=== PATIENT | male | born 1970 | race Caucasian/White ===

== ENCOUNTER 2016-11-21 10:30 | Emergency (ER) | payer BC, OTHER ==
[~2016-11-21] VITALS: Ht 175.3 cm; Wt 83.9 kg
[2016-11-21 10:41] VITALS: BP 163/105
[2016-11-21] MEDS ORDERED: NAPROXEN 500 MG TABLET PO STA (11:13)
[2016-11-21] MEDS ORDERED: HYDROCODONE/APAP 5/325MG TABLET. PO ONE (11:15)
[2016-11-21] MEDS ORDERED: CYCLOBENZAPRINE 10 MG TABLET. PO ONE (11:15)
--- NOTE | 2016-11-21 11:55 | RAD ---
Lumbar spine, 3 views, 11/21/2016: History: Back pain after twisting injury The lumbar vertebral heights are well-maintained. The intervertebral disc spaces are well preserved. No fracture or dislocation is identified. The paraspinous soft tissues are unremarkable. IMPRESSION: No acute lumbar spine abnormality is detected.
[2016-11-21] MEDS ORDERED: HYDR-971 PO (12:35)
[2016-11-21] MEDS ORDERED: CYCL10TA2 PO (12:35)
[2016-11-21] MEDS ORDERED: NAPR500T8 PO (12:35)
[2016-11-21] MEDS ORDERED: METH4TAB2 PO (12:35)
--- NOTE | 2016-11-21 12:35 | PHYS DOC ---
Past Medical History Past Medical History: No Pertinent History Additional Past Medical Histor: Devan's Dx Past Surgical History: Other Additional Past Surgical Histo: eye Alcohol Use: None Drug Use: None Adult General Chief Complaint Chief Complaint: LOWER BACK PAIN OR INJURY HPI HPI Patient is a 46 year old male who presents with mild bilateral low back pain worse on the right side of the back that began a week ago when he fell down 3 steps on his deck. Patient states today he twisted wrong and his pain worsened. Patient denies any loss of consciousness. Denies any loss of bowel or bladder function. Denies any pain radiating to bilateral lower extremities. Review of Systems Review of Systems Constitutional: Denies fever or chills [] Musculoskeletal: Bilateral low back pain worse on the right side Integument: Denies rash or skin lesions [] Neurologic: Denies headache, focal weakness or sensory changes [] Endocrine: Denies polyuria or polydipsia [] Current Medications Current Medications Current Medications Medications (Trade) Dose Ordered Sig/Zen Start Time Stop Time Status Last Admin Dose Admin Acetaminophen/ Hydrocodone Bitart (Lortab 5/325) 2 tab 1X ONCE 11/21/16 11:15 11/21/16 11:16 DC 11/21/16 11:20 2 TAB Cyclobenzaprine HCl (Flexeril) 10 mg 1X ONCE 11/21/16 11:15 11/21/16 11:16 DC 11/21/16 11:19 10 MG Naproxen (Naprosyn) 500 mg 1X STAT 11/21/16 11:13 11/21/16 11:16 DC 11/21/16 11:19 500 MG Allergies Allergies Allergies Coded Allergies Type Severity Reaction Last Updated Verified No Known Drug Allergies 11/21/16 No Physical Exam Physical Exam Constitutional: Well developed, well nourished, no acute distress, non-toxic appearance. [] Skin: approx. 6 x 4 bruising noted on the right low back Back: There is bruising on the right low back as noted in skin documentation. Diffuse paraspinal muscle tenderness to the right low lumbar region, no midline tenderness. Back exam difficult because patient was not comfortable in sitting position. Neurologic: Alert and oriented X 3, normal motor function, normal sensory function, no focal deficits noted. [] Psychologic: Affect normal, judgement normal, mood normal. [] Current Patient Data Vital Signs Vital Signs Date Time Temp Pulse Resp B/P Pulse Ox O2 Delivery O2 Flow Rate FiO2 11/21/16 10:41 98.1 68 20 100 Room Air 98.1 EKG EKG [] Radiology/Procedures Radiology/Procedures [] Course & Med Decision Making Course & Med Decision Making Pertinent Labs and Imaging studies reviewed. (See chart for details) Patient is in the ED with lumbar contusion after falling down one week ago. X- rays of the lumbar spine interpreted by radiologist are negative for any acute findings. Ice recommended to the lumbar spine. Discharged with instructions to follow-up with the PCP in the next 7 days. Provided proper return precautions. Dragon Disclaimer Dragon Disclaimer This electronic medical record was generated, in whole or in part, using a voice recognition dictation system. Departure Departure Impression: Primary Impression: Lumbar contusion Additional Impression: Fall down steps Disposition: 01 HOME, SELF-CARE Condition: STABLE Referrals: JOE JIMENEZ MD (PCP) Follow-up with your doctor in one week Patient Instructions: Contusion, [id number], Fall Prevention and Home Safety Additional Instructions: You were seen for back pain after falling. Please apply ice to the affected region or you can apply heat if it's comfortable. Avoid doing strenuous activities for the next 7 days. Take the prescribed medicines as ordered. Follow -up with your own doctor in one week. Scripts Hydrocodone/Apap 5-325 ([place] 5-325 Tablet)1 Each Tablet1-2 Tab PO Q4-6HRS #20 TAB Prov:WENDY PARRISH [employer]ING MANAGER 11/21/16 Cyclobenzaprine Hcl 10 Mg Tablet1 Tab PO TID #30 TAB Prov:WENDY PARRISH [employer] MA[employer] 11/21/16 Naproxen 500 Mg Tablet.dr1 Tab PO BID #60 TAB Ref 2 Prov:WENDY PARRISH [employer] MA[employer]GER 11/21/16 Methylprednisolone (Medrol)4 Mg Tab.ds.pk1 Pkg PO UD #1 PKG Prov:WENDY PARRISH [employer] MANAGER 11/21/16 Problem Qualifiers Primary Impression: Lumbar contusion Encounter type: initial encounter Qualified Code: S30.0XXA - Contusion of lower back and pelvis, initial encounter Additional Impression: Fall down steps Encounter type: initial encounter Qualified Code: W10.8XXA - Fall (on) (from ) other stairs and steps, initial encounter WENDY PARRISH APRN Nov 21, 2016 12:35
== END 2016-11-21 12:57 | disposition home or self-care (01) ==
LOC: ER 10:30
DX: S30.0XXA Contusion of lower back and pelvis, initial encounter (principal); W10.9XXA Fall (on) (from) unspecified stairs and steps, initial encounter; Y93.89 Activity, other specified; Y92.89 Other specified places as the place of occurrence of the external cause; Y99.8 Other external cause status
CPT/HCPCS: 72100; 99284